=== PATIENT | female | born 1980 | race Caucasian/White ===

== ENCOUNTER 2018-02-26 13:00 | Observation (INO) | payer OTHER, MEDICAID, SELFPAY ==
[2018-02-26] VITALS (11 sets, daily range): BP systolic 117–145; BP diastolic 84–100; PULSE 80–95; RESP 12–16; TEMP 36.6–37.3; O2SAT 98–100; BMI 22.6
--- NOTE | 2018-02-26 | PATH_ITS ---
[facility] Accession Number: [id number] . 01 Material submitted: . PRODUCTS OF CONCEPTION . 02 Diagnosis: Products of Conception: Products of conception identified. MRV/03/03/2018 . 02 Electronically signed: . Ramila Shah MD, Pathologist NPI- [id number] . 01 Gross description: . Received in one formalin-filled container labeled with the patient's name and labeled products of conception, are multiple pieces of huang-edwards to red-edwards tissue and blood which aggregate to 4.5 x 2.0 x 0.5 cm. No grossly recognizable parts are observed. The specimen is entirely submitted in three cassettes. ([id number]) /FRR . 02 Pathologist provided ICD-10: O02.1 . 02 CPT . 319043 Performed at: 01 [facility] [address] [id number] MD Benitez Robetrs MD Phone: [phone] Performed at: [address] [facility] [address] [place], [place] [id number] MD Yolanda Goldman MD Phone: [phone]
--- NOTE | 2018-02-26 13:27 | ED.FEMALEGU ---
HPI - Female Genitourinary General Chief complaint: Vaginal Bleeding Stated complaint: Acute Vaginal Bleeding Time Seen by Provider: 02/26/18 13:27 Source: patient Mode of arrival: EMS Limitations: no limitations History of Present Illness HPI Narrative: Patient is a 38-year-old . On 02/08/18 underwent an elective pharmacologic . [facility] She also states that she receive the depo shot at that same time. She states that she took the pill on that day and then another pill 24 hr later. She states she had cramping and bleeding afterwards but that completely resolved. She states that since then she has had some intermittent spotting until this morning when she had sudden onset of lower abdominal pain and bleeding. Related Data Home Medications Medication Instructions Recorded Confirmed sertraline 150 mg PO QDAY #0 11/24/15 02/26/18 medroxyprogesterone [Depo-Provera] 150 mg IM [id number] 02/26/18 02/26/18 Allergies Allergy/AdvReac Type Severity Reaction Status Date / Time pumpkin [PUMPKIN] Allergy Unknown hives Verified 02/26/18 13:15 squash [SQUASH] Allergy Unknown hives Verified 02/26/18 13:15 Review of Systems Constitutional Denies fever(s) and Denies headache(s) ENT Ears, Nose, Mouth, and Throat: Denies headache(s) Cardiovascular Denies chest pain and Denies dyspnea Respiratory Denies dyspnea Gastrointestinal Gastrointestinal: Reports abdominal pain, Denies change in bowel habits, Denies nausea and Denies vomiting Genitourinary Denies dysuria, Reports pelvic pain and Reports vaginal discharge Musculoskeletal Denies myalgias and Denies arthralgias Integumentary/Breasts Denies lesions and Denies rash Neurologic Denies headache(s) Hematologic/Lymphatic Denies easy bleeding and Denies easy bruising PFSH Medical History Healthy adult (Acute) Surgical History Status post delivery Social History Smoking Status: Current every day smoker Exam Initial Vital Signs Initial Vital Signs: Vital Signs Temperature 98.4 F 02/26/18 13:15 Pulse Rate 91 H 02/26/18 13:15 Respiratory Rate 15 02/26/18 13:15 Blood Pressure 145/100 H 02/26/18 13:15 Pulse Oximetry 99 02/26/18 13:15 Const General: cooperative, healthy appearing, comfortable, well developed, well groomed and No acute distress Orientation: alert, awake and oriented x3 HENMT Head: normal to inspection and normocephalic Resp Effort & Inspection: normal respiratory effort Cardio Rate: regular rate GI Inspection: non-distended Palpation: soft, No firm and No tender Skin Lesions: no lesions Rashes: no rashes Neuro General: alert, awake and oriented x3 Extrem General: normal to inspection and capillary refill normal Psych Appearance: grossly normal and well kempt Course Orders Ordered: ED Orders 02/26/18 13:26 Complete Blood Count AUTO DIFF Stat Comprehensive Metabolic Panel Stat Partial Thromboplastin Time Stat Prothrombin Time INR Stat Type and Screen Stat 02/26/18 13:46 US pelvic complete Stat Discontinued Medications Sodium Chloride (Normal Saline 0.9%) 1,000 mls @ 1,000 mls/hr IV BOLUS ONE Stop: 02/26/18 14:45 Last Infusion: 02/26/18 15:42 Dose: 0 mls/hr Admin: 02/26/18 14:14 Dose: 1,000 mls/hr Vital Signs - 8 hr 02/26/18 13:15 02/26/18 14:25 02/26/18 15:22 Temperature 98.4 F Pulse Rate 91 H 89 86 Respiratory Rate 15 15 12 Blood Pressure 145/100 H Blood Pressure [Left Arm] 126/95 H 126/97 H Pulse Oximetry 99 99 100 02/26/18 16:20 Temperature Pulse Rate 93 H Respiratory Rate 16 Blood Pressure Blood Pressure [Left Arm] 129/97 H Pulse Oximetry 99 MDM - Female Genitourinary Lab Data Attestation: I reviewed the patient's lab results. Result diagrams: 02/26/18 13:26 02/26/18 13:26 Lab Results 02/26/18 02/26/18 02/26/18 Range/Units 13:26 13:26 13:26 WBC 10.9 (4.5-11.0) X10^3/uL RBC 4.42 (4.0-5.2) X10^6/uL Hgb 12.8 (12.0-16.0) g/dL Hct 38.7 (36-46) % MCV 87.5 (80-100) fL MCH 29.0 (26-34) PG MCHC 33.1 (30-36) % RDW 13.3 (11.6-14.8) % Plt Count 395 (150-400) X10^3/uL Neut % (Auto) 78.5 H (50-75) % Lymph % (Auto) 12.9 L (25-40) % Dale % (Auto) 7.7 (3-14) % Eos % (Auto) 0.2 L (2-4) % Baso % (Auto) 0.7 (0-2) % Neut # (Auto) 8500 H (8837-0385) /uL PT 11.0 (10.1-12.7) SECONDS INR 1.0 (0.9-1.3) APTT 27 (26.4-36.2) SECONDS Sodium 140 (137-145) mmol/L Potassium 3.8 (3.4-5.1) mmol/L Chloride 106 (98-107) mmol/L Carbon Dioxide 22 (22-32) mmol/L BUN 11 (7-17) mg/dL Creatinine 0.60 (0.52-1.04) mg/dL Estimated GFR > 60.0 (>60) mL/min BUN/Creatinine Ratio 18.3 (6-22) Glucose 107 H (70-100) mg/dL Calcium 8.8 (8.4-10.2) mg/dL Total Bilirubin 0.2 (0.2-1.3) mg/dL AST 18 (14-36) IU/L ALT 18 (9-52) IU/L Alkaline Phosphatase 82 (38-126) U/L Total Protein 7.2 (6.3-8.2) g/dL Albumin 4.4 (3.5-5.0) g/dL Globulin 2.8 (1.7-4.1) g/dL Albumin/Globulin Ratio 1.6 (1.0-2.8) Serum , Qual (Negative) Blood Type Antibody Screen 02/26/18 02/26/18 Range/Units 13:26 Unknown WBC (4.5-11.0) X10^3/uL RBC (4.0-5.2) X10^6/uL Hgb (12.0-16.0) g/dL Hct (36-46) % MCV (80-100) fL MCH (26-34) PG MCHC (30-36) % RDW (11.6-14.8) % Plt Count (150-400) X10^3/uL Neut % (Auto) (50-75) % Lymph % (Auto) (25-40) % Dale % (Auto) (3-14) % Eos % (Auto) (2-4) % Baso % (Auto) (0-2) % Neut # (Auto) (4480-6900) /uL PT (10.1-12.7) SECONDS INR (0.9-1.3) APTT (26.4-36.2) SECONDS Sodium (137-145) mmol/L Potassium (3.4-5.1) mmol/L Chloride (98-107) mmol/L Carbon Dioxide (22-32) mmol/L BUN (7-17) mg/dL Creatinine (0.52-1.04) mg/dL Estimated GFR (>60) mL/min BUN/Creatinine Ratio (6-22) Glucose (70-100) mg/dL Calcium (8.4-10.2) mg/dL Total Bilirubin (0.2-1.3) mg/dL AST (14-36) IU/L ALT (9-52) IU/L Alkaline Phosphatase (38-126) U/L Total Protein (6.3-8.2) g/dL Albumin (3.5-5.0) g/dL Globulin (1.7-4.1) g/dL Albumin/Globulin Ratio (1.0-2.8) Serum , Qual Negative (Negative) Blood Type O Positive Antibody Screen Negative Imaging Data US pelvic: Radiologist's impression: PROCEDURE: US PELVIC COMPLETE INDICATIONS: Right adnexa pain with vaginal bleeding TECHNIQUE: Real-time scanning was performed of the pelvic organs, with image documentation. Additional endovaginal scanning was necessary due to incomplete visualization of the adnexal and endometrial structures by transabdominal scanning. COMPARISON: [facility], , PELVIC COMPLETE, 07/29/2011, 9:32. FINDINGS: Transabdominal scanning: Limited scanning through the kidneys shows no hydronephrosis. No pathologic free abdominal or pelvic fluid. Endovaginal scanning: Uterus: Uterus is mildly enlarged in size at 4.5 x 6.8 x 16.2 cm, anteverted. The endometrium is abnormally thickened but the exact boundaries are not established. Note is made of echogenic material in the endometrial space measuring at least 2 cm in thickness and up to 1.4 x 0.8 cm in transverse and craniocaudad dimensions and extending likely more superiorly and inferiorly than can be accurately established by ultrasound. Prominent increased vascularity is seen in the posterior myometrium extending into the endometrium, to the degree of arterial venous fistula could be present. In the cervical canal there is also abnormal material measuring up to 3.2 x 4.0 x 4.1 cm but this is evacuated after voiding. It likely was clot. Ovaries: Right ovary measures 2.5 x 2.1 x 3.2 cm and the left measures 3.0 x 2.5 x 3.1 cm. IMPRESSION: Reported vaginal bleeding, and the findings of this study show material that may represent a combination of clot and neoplasm within the endometrial space. Prominent elevated vascularity seen at the posterior myometrium extending into the endometrial margin, to the degree that hypervascular neoplasm versus arteriovenous malformation may be present. The exact etiology of this abnormality is uncertain. Please correlate for whether a volar could be present versus endometrial neoplasm. A discrete myometrial mass is not found, and the ovaries bilaterally appear normal. As discussed above initially a masslike structure appeared present within the cervical canal but after voiding this material was evacuated and therefore presumably represented clot at that time. Findings immediately conveyed to the emergency room physician caring for the patient. Dictated by: Gabe Rivers M.D. on 02/26/2018 at 15:28 Approved by: Gabe Rivers M.D. on 02/26/2018 at 15:34 [facility] Narrative Medical decision making narrative: I did not perform a vaginal exam here in the emergency department. Patient was slightly tachycardic to between 100/105. Not anemic. Not hypotensive. test is negative. Ultrasound concerning for retained products of conception versus his AVM versus neoplasm. Discussed the case with Dr. Weston with it operations manager who will take the patient to the operating room for D and C. Discussed this with the patient. She expressed understanding and agreement. Discharge Plan Departure Patient Disposition: Admitted as Observation Clinical Impression: Vaginal bleeding Interventions: ED Discharge Assessment Last Done: 02/26/18 16:36 Admit Date/Time: 02/26/18 16:23 Admit Provider: Leila Weston
[2018-02-26 13:42] LABS: Add Manual Diff / Slide Review NO; Basophils Percent Auto 0.7 % (0-2); Eosinophils Percent Auto 0.2 % (2-4); Hematocrit 38.7 % (36-46); Hemoglobin 12.8 g/dL (12.0-16.0); Lymphocytes Percent Auto 12.9 % (25-40); Mean Corpuscular HGB Conc 33.1 % (30-36); Mean Corpuscular Volume 87.5 fL (80-100); Monocytes Percent Auto 7.7 % (3-14); Neutrophils Absolute Auto 8500 /uL (3000-5900); Neutrophils Percent Auto 78.5 % (50-75); Platelet Count 395 X10^3/uL (150-400); Red Blood Cell Count 4.42 X10^6/uL (4.0-5.2); Red Cell Distribution Width 13.3 % (11.6-14.8); White Blood Cell Count 10.9 X10^3/uL (4.5-11.0)
[2018-02-26 13:46] LABS: PTT Partial Thromboplastin Tim 27 SECONDS (26.4-36.2)
--- NOTE | 2018-02-26 13:46 | DI.US.S_ITS ---
PROCEDURE: US PELVIC COMPLETE INDICATIONS: Right adnexa pain with vaginal bleeding TECHNIQUE: Real-time scanning was performed of the pelvic organs, with image documentation. Additional endovaginal scanning was necessary due to incomplete visualization of the adnexal and endometrial structures by transabdominal scanning. COMPARISON: [facility], [place], PELVIC COMPLETE, 07/29/2011, 9:32. FINDINGS: Transabdominal scanning: Limited scanning through the kidneys shows no hydronephrosis. No pathologic free abdominal or pelvic fluid. Endovaginal scanning: Uterus: Uterus is mildly enlarged in size at 4.5 x 6.8 x 16.2 cm, anteverted. The endometrium is abnormally thickened but the exact boundaries are not established. Note is made of echogenic material in the endometrial space measuring at least 2 cm in thickness and up to 1.4 x 0.8 cm in transverse and craniocaudad dimensions and extending likely more superiorly and inferiorly than can be accurately established by ultrasound. Prominent increased vascularity is seen in the posterior myometrium extending into the endometrium, to the degree of arterial venous fistula could be present. In the cervical canal there is also abnormal material measuring up to 3.2 x 4.0 x 4.1 cm but this is evacuated after voiding. It likely was clot. Ovaries: Right ovary measures 2.5 x 2.1 x 3.2 cm and the left measures 3.0 x 2.5 x 3.1 cm. IMPRESSION: Reported vaginal bleeding, and the findings of this study show material that may represent a combination of clot and neoplasm within the endometrial space. Prominent elevated vascularity seen at the posterior myometrium extending into the endometrial margin, to the degree that hypervascular neoplasm versus arteriovenous malformation may be present. The exact etiology of this abnormality is uncertain. Please correlate for whether a volar could be present versus endometrial neoplasm. A discrete myometrial mass is not found, and the ovaries bilaterally appear normal. As discussed above initially a masslike structure appeared present within the cervical canal but after voiding this material was evacuated and therefore presumably represented clot at that time. Findings immediately conveyed to the emergency room physician caring for the patient. Dictated by: Gabe Rivers M.D. on 02/26/2018 at 15:28 Approved by: Gabe Rivers M.D. on 02/26/2018 at 15:34
[2018-02-26 13:52] LABS: Alanine Aminotransferase 18 IU/L (9-52); Albumin 4.4 g/dL (3.5-5.0); Albumin Globulin Ratio 1.6 (1.0-2.8); Alkaline Phosphatase 82 U/L (38-126); Aspartate Aminotransferase 18 IU/L (14-36); BUN Creatinine Ratio 18.3 (6-22); Bilirubin Total 0.2 mg/dL (0.2-1.3); Blood Urea Nitrogen 11 mg/dL (7-17); Calcium 8.8 mg/dL (8.4-10.2); Carbon Dioxide 22 mmol/L (22-32); Chloride 106 mmol/L (98-107); Estimated Glomerular Filt Rate > 60.0 mL/min (>60); Globulin 2.8 g/dL (1.7-4.1); Glucose 107 mg/dL (70-100); HEMOLYSIS < 15 (0-50); Potassium 3.8 mmol/L (3.4-5.1); Sodium 140 mmol/L (137-145); Total Protein 7.2 g/dL (6.3-8.2)
[2018-02-26] MEDS: SODIUM CHLORIDE 0.9% 1,000 ML 1000 ML IV (14:14)
[2018-02-26 14:32] LABS: Pregnancy Test Serum,Qual Negative (Negative)
--- NOTE | 2018-02-26 16:21 | PC.NURSE ---
pt had large amount of bleeding and clots with urination.
--- NOTE | 2018-02-26 16:46 | SUR.OPER ---
Lithotomy on padded OR bed, head on pillow, arms secured on padded arm boards at <90 degrees abduction. Legs secured in padded yellow fins stirrups.
[2018-02-26] MEDS: LACTATED RINGERS 1,000 ML 42 ML IV (16:57)
--- NOTE | 2018-02-26 17:10 | PM.PREOP ---
Pre-operative Note Interval Note Pre-op Check: Yes History & Physical exam performed today by Physician Changes: No
--- NOTE | 2018-02-26 17:18 | P.HP_ITS ---
History of Present Illness Date Patient Seen: 02/26/18 Time Patient Seen: 17:14 Chief complaint: Acute Vaginal Bleeding Narrative: 38 year old with retained products of conception after a medical Patient History Medical History Healthy adult (Acute) Surgical History Status post delivery Family & Social History Safety & Behavioral: Feels Safe in Current Yes Environment Tobacco & Substance use: Smoking Status Current every day smoker alcohol intake frequency a few times a month Substance Use Type does not use Meds Home Medications Medication Instructions Recorded Confirmed Type sertraline 150 mg PO QDAY #0 11/24/15 02/26/18 History medroxyprogesterone [Depo-Provera] 150 mg IM [id number] 02/26/18 02/26/18 History Allergies Allergy/AdvReac Type Severity Reaction Status Date / Time pumpkin [PUMPKIN] Allergy Unknown hives Verified 02/26/18 13:15 squash [SQUASH] Allergy Unknown hives Verified 02/26/18 13:15 Exam Vital Signs (past 8 hours): - 02/26/18 13:15 02/26/18 14:25 02/26/18 15:22 Temperature 98.4 F Pulse Rate 91 H 89 86 Respiratory Rate 15 15 12 Blood Pressure 145/100 H Blood Pressure [Left Arm] 126/95 H 126/97 H Pulse Oximetry 99 99 100 02/26/18 16:20 02/26/18 16:48 Temperature 98.6 F Pulse Rate 93 H 95 H Respiratory Rate 16 16 Blood Pressure 130/87 Blood Pressure [Left Arm] 129/97 H Pulse Oximetry 99 98 Oxygen Delivery Method Room Air Narrative Exam Narrative: HEENT: No thyromegaly, no anterior cervical or supraclavicular lymphadenopathy. Lungs:Clear to auscultation bilaterally, no wheezes. Cardiovascular: Regular rate and rhythm, no murmurs, rubs, or gallops. Abdomen: Well-healed Pfannenstiel scars. No hepatosplenomegaly. No masses palpable. External genitalia: Normal Vagina: Normal Cervix: Normal Bimanual exam: 8 Week size uterus. Mobile. Rectal: No masses. Ultrasound: Thickened lining of the uterus with hyperechoic material and increased blood flow consistent with retained products of conception. Objective Labs Result Diagrams: 02/26/18 13:26 02/26/18 13:26 Labs: Laboratory Results - last 24 hr 02/26/18 02/26/18 02/26/18 13:26 13:26 13:26 WBC 10.9 RBC 4.42 Hgb 12.8 Hct 38.7 MCV 87.5 MCH 29.0 MCHC 33.1 RDW 13.3 Plt Count 395 Neut % (Auto) 78.5 H Lymph % (Auto) 12.9 L [place]orne % (Auto) 7.7 Eos % (Auto) 0.2 L Baso % (Auto) 0.7 Neut # (Auto) 8500 H PT 11.0 INR 1.0 APTT 27 Sodium 140 Potassium 3.8 Chloride 106 Carbon Dioxide 22 BUN 11 Creatinine 0.60 Estimated GFR > 60.0 BUN/Creatinine Ratio 18.3 Glucose 107 H Calcium 8.8 Total Bilirubin 0.2 AST 18 ALT 18 Alkaline Phosphatase 82 Total Protein 7.2 Albumin 4.4 Globulin 2.8 Albumin/Globulin Ratio 1.6 Serum , Qual Blood Type Antibody Screen 02/26/18 02/26/18 13:26 Unknown WBC RBC Hgb Hct MCV MCH MCHC RDW Plt Count Neut % (Auto) Lymph % (Auto) [place] % (Auto) Eos % (Auto) Baso % (Auto) Neut # (Auto) PT INR APTT Sodium Potassium Chloride Carbon Dioxide BUN Creatinine Estimated GFR BUN/Creatinine Ratio Glucose Calcium Total Bilirubin AST ALT Alkaline Phosphatase Total Protein Albumin Globulin Albumin/Globulin Ratio Serum , Qual Negative Blood Type O Positive Antibody Screen Negative Assessment & Plan (1) Retained products of conception: Current visit: Yes Status: Acute Plan: Assessment/Plan Narrative: Assessment: 38-year-old 3 para 2 with retained products of conception after a medical induced Plan: Suction S held and consent form was signed. D&C The risks, benefits, and alternatives to the procedure were explained to the patient. The risks including bleeding, infection, and uterine perforation. She understands these risks and agrees to proceed. A full PAR-Q
--- NOTE | 2018-02-26 17:29 | PM.GYNOP.1 ---
Operative Date/Time/Diagnoses Date of procedure: 02/26/18 Time of procedure: 17:29 Pre-op diagnosis: Retained products of conception Post-op diagnosis: same Procedure: Procedures Operation Date: 02/26/18 16:30 Actual Procedures Side Surgeon p Dilation and Curettage Leila Weston MD Suction D&C Indications: Retained products of conception Surgeon: Leila Weston Anesthesia Type: General (LMA) Operative Notes Findings: 8 week size anteverted uterus Large amount of products of conception Closure Type: not applicable Specimen(s): other (Products of conception) Applied: catheter (In and out) Estimated blood loss (mL): 150 Blood products transfused: none Procedure in detail: After informed consent was obtained, the patient was taken to the operating room where she was placed in the dorsal supine position. After adequate LMA general anesthesia was achieved, she was placed in the dorsal lithotomy position, and prepped and draped in the usual sterile fashion. A time-out was performed. A bivalve speculum was placed into the vagina, the anterior lip of the cervix was grasped with a single-tooth tenaculum. The cervical os was sequentially dilated to the #8 Hegar dilator. The # 8 curved plastic curette passed easily into the endometrial cavity. Several passes with suction revealed a large amount of tissue and clot. The plastic curette was removed. Sharp curettage was performed yielding minimal amount of tissue. Several more passes with suction revealed blood only. The instruments were removed from the uterus. The single-tooth tenaculum was removed from the anterior lip of the cervix. The bivalve speculum was removed from the vagina. Sponge, lap, and instrument counts were correct x2. The patient tolerated the procedure well, and was taken to PACU in stable condition. Complications: none Post-operative Condition: stable Disposition: PACU Plan for aftercare: Home after recovery
== END 2018-02-26 18:48 | disposition home or self-care (01) ==
LOC: ED 13:52 → AC 16:25
PROVIDERS: Admitting Provider Obstetrics & Gynecology; Emergency Provider Emergency Medicine; Family Provider Family Medicine; Visit Provider Obstetrics & Gynecology
PROC: (CPT 58120; principal; 2018-02-26 16:30)
DX: O03.4 Incomplete spontaneous abortion without complication (principal); N93.9 Abnormal uterine and vaginal bleeding, unspecified; F17.210 Nicotine dependence, cigarettes, uncomplicated
CPT/HCPCS: 59812; 76830; 76856; 80053; 84703; 85025; 85610; 85730; 86850; 86900; 86901; 96360; 99283; 99285; G0378; J2250; J2405; J2704; J3010

== ENCOUNTER 2018-04-16 17:38 | Emergency (ER) | payer OTHER, MEDICAID, SELFPAY ==
[2018-04-16 17:45] VITALS: BP 144/99; PULSE 88; RESP 20; TEMP 37.6; O2SAT 100; BMI 22.7
--- NOTE | 2018-04-16 18:01 | ED.FEMALEGU ---
HPI - Female Genitourinary General Chief complaint: Urogenital-Female Stated complaint: R/O Ectopic Time Seen by Provider: 04/16/18 18:01 Source: patient and EMS Mode of arrival: EMS Limitations: no limitations History of Present Illness HPI Narrative: 38-year-old female, daily smoker, otherwise healthy presents by air medical transport for evaluation of right lower quadrant pain in the setting of some vaginal bleeding for evaluation of possible ectopic. Patient has nausea but denies vomiting. Her pain is worse with motion and palpation. Her bleeding has been minimal and she may soak through 1 or 2 pads a day. She is not dizzy nor weak or lightheaded. She has no fever or chills. She denies dysuria, frequency or urgency. She was set for a repeat Depo-Provera injection about 2 weeks ago and this is the 1st time she has gone without in quite some time. She does have a history of ovarian cysts. There was no test performed prior to her arrival. She is sexually active MD Complaint: vaginal bleeding and pelvic pain Onset (ago): hour(s) Female Urogenital Radiation: LRQ Severity: mild Quality: Aching and Cramping Exacerbating factors: movement Vaginal discharge: blood Related Data Home Medications Medication Instructions Recorded Confirmed sertraline 150 mg PO QDAY #0 11/24/15 02/26/18 medroxyprogesterone [Depo-Provera] 150 mg IM [id number] 02/26/18 02/26/18 Previous Rx's Medication Instructions Recorded oxycodone-acetaminophen [Percocet] 1 tab PO Q4-6H PRN #10 tab 02/26/18 ketorolac 10 mg PO Q6H PRN #14 tab 04/16/18 Allergies Allergy/AdvReac Type Severity Reaction Status Date / Time pumpkin [PUMPKIN] Allergy Unknown hives Verified 02/26/18 13:15 squash [SQUASH] Allergy Unknown hives Verified 02/26/18 13:15 Review of Systems Review of Systems All systems reviewed & are unremarkable except as noted in HPI and below Constitutional Denies chills, Denies fever(s), Denies lethargy and Denies weakness Eyes Denies change in vision, Denies eye discharge, Denies irritation and Denies loss of vision ENT Ears, Nose, Mouth, and Throat: Denies change in voice, Denies neck pain and Denies sore throat Cardiovascular Denies chest pain, Denies irregular heart rhythm, Denies lightheadedness, Denies palpitations, Denies dyspnea, Denies dyspnea on exertion and Denies orthopnea Respiratory Denies cough, Denies dyspnea, Denies dyspnea on exertion and Denies wheezing Gastrointestinal Gastrointestinal: Denies abdominal pain, Denies change in bowel habits, Denies diarrhea, Denies nausea and Denies vomiting Genitourinary Reports abnormal vaginal bleeding, Denies hematuria, Denies flank pain, Denies urinary incontinence and Denies urinary urgency Musculoskeletal Denies neck pain Integumentary/Breasts Denies pruritus, Denies erythema, Denies rash and Denies wounds Neurologic Denies confusion, Denies loss of vision and Denies weakness Psychiatric Denies anxiety, Denies confusion, Denies depression, Denies homicidal ideation and Denies suicidal ideation Endocrine Denies palpitations Hematologic/Lymphatic Denies easy bruising Allergic/Immunologic Denies wheezing PFSH Medical History Healthy adult (Acute) Surgical History Status post delivery Social History Smoking Status: Current every day smoker Exam Initial Vital Signs Initial Vital Signs: Vital Signs Temperature 99.6 F 04/16/18 17:45 Pulse Rate 88 04/16/18 17:45 Respiratory Rate 20 04/16/18 17:45 Blood Pressure 144/99 H 04/16/18 17:45 Pulse Oximetry 100 04/16/18 17:45 Course Orders Ordered: ED Orders 04/16/18 18:50 ABO RH Type Stat Basic Metabolic Panel Stat Complete Blood Count AUTO DIFF Stat HCG Quantitative Stat Discontinued Medications Ketorolac Tromethamine (Toradol) 15 mg IV NOW ONE Stop: 04/16/18 20:22 Last Admin: 04/16/18 20:30 Dose: 15 mg Vital Signs - 8 hr 04/16/18 20:27 Pulse Rate 86 Respiratory Rate 15 Blood Pressure [Left Arm] 122/83 Pulse Oximetry 99 MDM - Female Genitourinary Differential Diagnosis Likely urinary tract infection, bacterial vaginosis, ruptured ovarian cyst and dysmenorrhea Medical Records Attestation: I reviewed the patient's medical records. Lab Data Attestation: I reviewed the patient's lab results. Result diagrams: 04/16/18 18:50 04/16/18 18:50 Lab Results 04/16/18 04/16/18 04/16/18 Range/Units 18:50 18:50 18:50 WBC 7.1 (4.5-11.0) X10^3/uL RBC 4.78 (4.0-5.2) X10^6/uL Hgb 12.6 (12.0-16.0) g/dL Hct 38.3 (36-46) % MCV 80.2 (80-100) fL MCH 26.3 (26-34) PG MCHC 32.8 (30-36) % RDW 14.0 (11.6-14.8) % Plt Count 417 H (150-400) X10^3/uL Neut % (Auto) 65.9 (50-75) % Lymph % (Auto) 21.3 L (25-40) % [place] % (Auto) 11.6 (3-14) % Eos % (Auto) 0.8 L (2-4) % Baso % (Auto) 0.4 (0-2) % Neut # (Auto) 4700 (5344-8709) /uL Sodium 141 (137-145) mmol/L Potassium 4.1 (3.4-5.1) mmol/L Chloride 101 (98-107) mmol/L Carbon Dioxide 29 (22-32) mmol/L BUN 5 L (7-17) mg/dL Creatinine 0.70 (0.52-1.04) mg/dL Estimated GFR > 60.0 (>60) mL/min BUN/Creatinine Ratio 7.1 (6-22) Glucose 92 (70-100) mg/dL Calcium 8.9 (8.4-10.2) mg/dL HCG, Quant < 2.39 mIU/mL Blood Type O Positive Imaging Data US - abdomen: Radiologist's impression: [address] [address] Ultrasound Report Signed Patient: Elsie Juarez MR#: [id number] : 1980 Acct:[id number] Age/Sex: 38 / F Date of Service: 04/16/18 Loc: ED Accession Number: [id number] Procedure: US pelvic complete Ordering Provider: Rajiv Aguilar D.O. PROCEDURE: US PELVIC COMPLETE INDICATIONS: PAIN, BLEEDING TECHNIQUE: Real-time scanning was performed of the pelvic organs, with image documentation. Additional endovaginal scanning was necessary due to incomplete visualization of the adnexal and endometrial structures by transabdominal scanning. COMPARISON: [facility], , US PELVIC COMPLETE, 02/26/2018, 14:36. FINDINGS: Transabdominal scanning: Limited scanning through the kidneys shows no hydronephrosis. No pathologic free abdominal or pelvic fluid. Endovaginal scanning: Uterus: Uterus is normal in size at 8.1 x 4.1 x 5.4 cm. The endometrium measures 4.0 mm in combined thickness. There is no visualized intrauterine . Ovaries: Right ovary measures 33 x 13 x 37 mm. Left ovary measures 36 x 29 x 38 mm. Focus of hypoechogenicity within the left ovary is noted measuring 32 x 24 x 24 mm. Miscellaneous: No visualized dependent pelvic fluid. IMPRESSION: 1. No intrauterine is identified. Hypoechoic focus is present within the left ovary suggestive of cysts. However, beta-hCG level is not available at the time of examination. Given the above, recommend continued short interval imaging followup and clinical correlation as ectopic cannot be definitively excluded. Dictated by: Vale Rivas M.D. on 04/16/2018 at 19:44 Approved by: Vale Rivas M.D. on 04/16/2018 at 19:47 Discharge Plan Departure Patient Disposition: Home Clinical Impression: Pelvic pain, Ovarian cyst Discharge Date/Time: 04/16/18 20:58 Interventions: ED Discharge Assessment Last Done: 04/16/18 20:58 Instructions: DI for Pelvic Pain Activity Restrictions/Additional Instructions: *You have been diagnosed with [ pelvic pain, vaginal bleeding ] *What to do: *Take medications as directed *Follow up with your primary care provider in 2-3 days, call for an appointment. Let them know you were seen in the Emergency Department and that we ask that you be seen in follow up *Return to ER if you should have any new, worsening or concerning symptoms Prescriptions: New ketorolac 10 mg tablet 10 mg PO Q6H PRN (Reason: pain) Qty: 14 RF: 0 No Action sertraline 100 MG tablet 150 mg PO QDAY Qty: 0 RF: 0 medroxyprogesterone [Depo-Provera] 150 mg/mL Suspension 150 mg IM [id number] RF: 0 oxycodone-acetaminophen [Percocet] 5-325 mg tablet 1 tab PO Q4-6H PRN (Reason: pain) Qty: 10 RF: 0 Referrals: Mina Ascencio MD [Family Provider] -
--- NOTE | 2018-04-16 18:04 | DI.US.S_ITS ---
PROCEDURE: US PELVIC COMPLETE INDICATIONS: PAIN, BLEEDING TECHNIQUE: Real-time scanning was performed of the pelvic organs, with image documentation. Additional endovaginal scanning was necessary due to incomplete visualization of the adnexal and endometrial structures by transabdominal scanning. COMPARISON: [facility], , US PELVIC COMPLETE, 02/26/2018, 14:36. FINDINGS: Transabdominal scanning: Limited scanning through the kidneys shows no hydronephrosis. No pathologic free abdominal or pelvic fluid. Endovaginal scanning: Uterus: Uterus is normal in size at 8.1 x 4.1 x 5.4 cm. The endometrium measures 4.0 mm in combined thickness. There is no visualized intrauterine . Ovaries: Right ovary measures 33 x 13 x 37 mm. Left ovary measures 36 x 29 x 38 mm. Focus of hypoechogenicity within the left ovary is noted measuring 32 x 24 x 24 mm. Miscellaneous: No visualized dependent pelvic fluid. IMPRESSION: 1. No intrauterine is identified. Hypoechoic focus is present within the left ovary suggestive of cysts. However, beta-hCG level is not available at the time of examination. Given the above, recommend continued short interval imaging followup and clinical correlation as ectopic cannot be definitively excluded. Dictated by: Vale Rivas M.D. on 04/16/2018 at 19:44 Approved by: Vale Rivas M.D. on 04/16/2018 at 19:47
[2018-04-16 18:55] LABS: Add Manual Diff / Slide Review NO; Basophils Percent Auto 0.4 % (0-2); Eosinophils Percent Auto 0.8 % (2-4); Hematocrit 38.3 % (36-46); Hemoglobin 12.6 g/dL (12.0-16.0); Lymphocytes Percent Auto 21.3 % (25-40); Mean Corpuscular HGB Conc 32.8 % (30-36); Mean Corpuscular Hemoglobin 26.3 PG (26-34); Mean Corpuscular Volume 80.2 fL (80-100); Monocytes Percent Auto 11.6 % (3-14); Neutrophils Absolute Auto 4700 /uL (1500-7000); Neutrophils Percent Auto 65.9 % (50-75); Platelet Count 417 X10^3/uL (150-400); Red Blood Cell Count 4.78 X10^6/uL (4.0-5.2); White Blood Cell Count 7.1 X10^3/uL (4.5-11.0)
[2018-04-16 19:04] LABS: BUN Creatinine Ratio 7.1 (6-22); Blood Urea Nitrogen 5 mg/dL (7-17); Calcium 8.9 mg/dL (8.4-10.2); Carbon Dioxide 29 mmol/L (22-32); Chloride 101 mmol/L (98-107); Estimated Glomerular Filt Rate > 60.0 mL/min (>60); Glucose 92 mg/dL (70-100); HEMOLYSIS < 15 (0-50); Potassium 4.1 mmol/L (3.4-5.1); Sodium 141 mmol/L (137-145)
[2018-04-16 19:21] LABS: HCG Quantitative /Beta subunit < 2.39 mIU/mL
[2018-04-16 20:27] VITALS: BP 122/83; PULSE 86; RESP 15; O2SAT 99
[2018-04-16] MEDS: KETOROLAC 60 MG/2 ML VIAL 15 MG IV (20:30)
--- NOTE | 2018-04-17 03:26 | ED_ITS ---
HPI - Female Genitourinary General Chief complaint: Urogenital-Female Stated complaint: R/O Ectopic Time Seen by Provider: 04/16/18 18:01 Source: patient and EMS Mode of arrival: EMS Limitations: no limitations History of Present Illness HPI Narrative: 38-year-old female, daily smoker, otherwise healthy presents by air medical transport for evaluation of right lower quadrant pain in the setting of some vaginal bleeding for evaluation of possible ectopic. Patient has nausea but denies vomiting. Her pain is worse with motion and palpation. Her bleeding has been minimal and she may soak through 1 or 2 pads a day. She is not dizzy nor weak or lightheaded. She has no fever or chills. She denies dysuria, frequency or urgency. She was set for a repeat Depo-Provera injection about 2 weeks ago and this is the 1st time she has gone without in quite some time. She does have a history of ovarian cysts. There was no test performed prior to her arrival. She is sexually active MD Complaint: vaginal bleeding and pelvic pain Onset (ago): hour(s) Female Urogenital Radiation: LRQ Severity: mild Quality: Aching and Cramping Exacerbating factors: movement Vaginal discharge: blood Related Data Home Medications Medication Instructions Recorded Confirmed sertraline 150 mg PO QDAY #0 11/24/15 02/26/18 medroxyprogesterone [Depo-Provera] 150 mg IM [id number] 02/26/18 02/26/18 Previous Rx's Medication Instructions Recorded oxycodone-acetaminophen [Percocet] 1 tab PO Q4-6H PRN #10 tab 02/26/18 ketorolac 10 mg PO Q6H PRN #14 tab 04/16/18 Allergies Allergy/AdvReac Type Severity Reaction Status Date / Time pumpkin [PUMPKIN] Allergy Unknown hives Verified 02/26/18 13:15 squash [SQUASH] Allergy Unknown hives Verified 02/26/18 13:15 Review of Systems Review of Systems All systems reviewed & are unremarkable except as noted in HPI and below Constitutional Denies chills, Denies fever(s), Denies lethargy and Denies weakness Eyes Denies change in vision, Denies eye discharge, Denies irritation and Denies loss of vision ENT Ears, Nose, Mouth, and Throat: Denies change in voice, Denies neck pain and Denies sore throat Cardiovascular Denies chest pain, Denies irregular heart rhythm, Denies lightheadedness, Denies palpitations, Denies dyspnea, Denies dyspnea on exertion and Denies orthopnea Respiratory Denies cough, Denies dyspnea, Denies dyspnea on exertion and Denies wheezing Gastrointestinal Gastrointestinal: Denies abdominal pain, Denies change in bowel habits, Denies diarrhea, Denies nausea and Denies vomiting Genitourinary Reports abnormal vaginal bleeding, Denies hematuria, Denies flank pain, Denies urinary incontinence and Denies urinary urgency Musculoskeletal Denies neck pain Integumentary/Breasts Denies pruritus, Denies erythema, Denies rash and Denies wounds Neurologic Denies confusion, Denies loss of vision and Denies weakness Psychiatric Denies anxiety, Denies confusion, Denies depression, Denies homicidal ideation and Denies suicidal ideation Endocrine Denies palpitations Hematologic/Lymphatic Denies easy bruising Allergic/Immunologic Denies wheezing PFSH Medical History Healthy adult (Acute) Surgical History Status post delivery Social History Smoking Status: Current every day smoker Exam Initial Vital Signs Initial Vital Signs: Vital Signs Temperature 99.6 F 04/16/18 17:45 Pulse Rate 88 04/16/18 17:45 Respiratory Rate 20 04/16/18 17:45 Blood Pressure 144/99 H 04/16/18 17:45 Pulse Oximetry 100 04/16/18 17:45 Course Orders Ordered: ED Orders 04/16/18 18:50 ABO RH Type Stat Basic Metabolic Panel Stat Complete Blood Count AUTO DIFF Stat HCG Quantitative Stat Discontinued Medications Ketorolac Tromethamine (Toradol) 15 mg IV NOW ONE Stop: 04/16/18 20:22 Last Admin: 04/16/18 20:30 Dose: 15 mg Vital Signs - 8 hr 04/16/18 20:27 Pulse Rate 86 Respiratory Rate 15 Blood Pressure [Left Arm] 122/83 Pulse Oximetry 99 MDM - Female Genitourinary Differential Diagnosis Likely urinary tract infection, bacterial vaginosis, ruptured ovarian cyst and dysmenorrhea Medical Records Attestation: I reviewed the patient's medical records. Lab Data Attestation: I reviewed the patient's lab results. Result diagrams: 04/16/18 18:50 04/16/18 18:50 Lab Results 04/16/18 04/16/18 04/16/18 Range/Units 18:50 18:50 18:50 WBC 7.1 (4.5-11.0) X10^3/uL RBC 4.78 (4.0-5.2) X10^6/uL Hgb 12.6 (12.0-16.0) g/dL Hct 38.3 (36-46) % MCV 80.2 (80-100) fL MCH 26.3 (26-34) PG MCHC 32.8 (30-36) % RDW 14.0 (11.6-14.8) % Plt Count 417 H (150-400) X10^3/uL Neut % (Auto) 65.9 (50-75) % Lymph % (Auto) 21.3 L (25-40) % [place] % (Auto) 11.6 (3-14) % Eos % (Auto) 0.8 L (2-4) % Baso % (Auto) 0.4 (0-2) % Neut # (Auto) 4700 (6005-8274) /uL Sodium 141 (137-145) mmol/L Potassium 4.1 (3.4-5.1) mmol/L Chloride 101 (98-107) mmol/L Carbon Dioxide 29 (22-32) mmol/L BUN 5 L (7-17) mg/dL Creatinine 0.70 (0.52-1.04) mg/dL Estimated GFR > 60.0 (>60) mL/min BUN/Creatinine Ratio 7.1 (6-22) Glucose 92 (70-100) mg/dL Calcium 8.9 (8.4-10.2) mg/dL HCG, Quant < 2.39 mIU/mL Blood Type O Positive Imaging Data US - abdomen: Radiologist's impression: [address] [address] Ultrasound Report Signed Patient: Elsie Juarez MR#: [id number] : 1980 Acct:[id number] Age/Sex: 38 / F Date of Service: 04/16/18 Loc: ED Accession Number: [id number] Procedure: US pelvic complete Ordering Provider: Rajiv Aguilar D.O. PROCEDURE: US PELVIC COMPLETE INDICATIONS: PAIN, BLEEDING TECHNIQUE: Real-time scanning was performed of the pelvic organs, with image documentation. Additional endovaginal scanning was necessary due to incomplete visualization of the adnexal and endometrial structures by transabdominal scanning. COMPARISON: [facility], , US PELVIC COMPLETE, 02/26/2018, 14:36. FINDINGS: Transabdominal scanning: Limited scanning through the kidneys shows no hydronephrosis. No pathologic free abdominal or pelvic fluid. Endovaginal scanning: Uterus: Uterus is normal in size at 8.1 x 4.1 x 5.4 cm. The endometrium measures 4.0 mm in combined thickness. There is no visualized intrauterine . Ovaries: Right ovary measures 33 x 13 x 37 mm. Left ovary measures 36 x 29 x 38 mm. Focus of hypoechogenicity within the left ovary is noted measuring 32 x 24 x 24 mm. Miscellaneous: No visualized dependent pelvic fluid. IMPRESSION: 1. No intrauterine is identified. Hypoechoic focus is present within the left ovary suggestive of cysts. However, beta-hCG level is not available at the time of examination. Given the above, recommend continued short interval imaging followup and clinical correlation as ectopic cannot be definitively excluded. Dictated by: Vale Rivas M.D. on 04/16/2018 at 19:44 Approved by: Vale Rivas M.D. on 04/16/2018 at 19:47 Discharge Plan Departure Patient Disposition: Home Clinical Impression: Pelvic pain, Ovarian cyst Discharge Date/Time: 04/16/18 20:58 Interventions: ED Discharge Assessment Last Done: 04/16/18 20:58 Instructions: DI for Pelvic Pain Activity Restrictions/Additional Instructions: *You have been diagnosed with [ pelvic pain, vaginal bleeding ] *What to do: *Take medications as directed *Follow up with your primary care provider in 2-3 days, call for an appointment. Let them know you were seen in the Emergency Department and that we ask that you be seen in follow up *Return to ER if you should have any new, worsening or concerning symptoms Prescriptions: New ketorolac 10 mg tablet 10 mg PO Q6H PRN (Reason: pain) Qty: 14 RF: 0 No Action sertraline 100 MG tablet 150 mg PO QDAY Qty: 0 RF: 0 medroxyprogesterone [Depo-Provera] 150 mg/mL Suspension 150 mg IM [id number] RF: 0 oxycodone-acetaminophen [Percocet] 5-325 mg tablet 1 tab PO Q4-6H PRN (Reason: pain) Qty: 10 RF: 0 Referrals: Mina Ascencio MD [Family Provider] -
== END 2018-04-16 20:58 | disposition home or self-care (01) ==
PROVIDERS: Emergency Provider Emergency Medicine; Family Provider Family Medicine
DX: N83.209 Unspecified ovarian cyst, unspecified side (principal); R10.2 Pelvic and perineal pain
CPT/HCPCS: 36415; 76830; 76856; 80048; 84702; 85025; 86900; 86901; 96374; 99282; 99284; J1885

== ENCOUNTER 2020-07-26 14:56 | Emergency (ER) | payer OTHER, MEDICAID, SELFPAY ==
[2020-07-26] VITALS (7 sets, daily range): BP systolic 151–154; BP diastolic 88–105; PULSE 68–93; RESP 15–20; TEMP 37.1; O2SAT 95–99; BMI 24.5
[2020-07-26 15:28] LABS: Add Manual Diff / Slide Review NO; Basophils Absolute Auto 100 /uL (0-100); Basophils Percent Auto 0.8 % (0-2); Eosinophils Absolute Auto 100 /uL (0-450); Eosinophils Percent Auto 0.9 % (2-4); Hematocrit 46.5 % (36-46); Hemoglobin 15.7 g/dL (12.0-16.0); Lymphocytes Absolute Auto 2200 /uL (1100-4500); Lymphocytes Percent Auto 29.7 % (25-40); Mean Corpuscular HGB Conc 33.8 % (30-36); Mean Corpuscular Hemoglobin 30.4 PG (26-34); Mean Corpuscular Volume 90.1 fL (80-100); Monocytes Absolute Auto 800 /uL (0-900); Monocytes Percent Auto 10.3 % (3-14); Neutrophils Absolute Auto 4300 /uL (1500-7000); Neutrophils Percent Auto 58.3 % (50-75); Platelet Count 347 X10^3/uL (150-400); Red Blood Cell Count 5.16 X10^6/uL (4.0-5.2); Red Cell Distribution Width 13.4 % (11.6-14.8); White Blood Cell Count 7.4 X10^3/uL (4.5-11.0)
[2020-07-26 15:39] LABS: INR 0.9 (0.9-1.3); Prothrombin Time 10.6 SECONDS (10.1-12.7)
[2020-07-26 15:41] LABS: PTT Partial Thromboplastin Tim 33 SECONDS (26.4-36.2)
[2020-07-26 16:21] LABS: Alanine Aminotransferase 15 IU/L (<35); Albumin 4.6 g/dL (3.5-5.0); Albumin Globulin Ratio 1.4 (1.0-2.8); Alkaline Phosphatase 73 U/L (38-126); Aspartate Aminotransferase 26 IU/L (14-36); BUN Creatinine Ratio 15.6 (6-22); Bilirubin Total 0.3 mg/dL (0.2-1.3); Blood Urea Nitrogen 10 mg/dL (7-17); Calcium 9.9 mg/dL (8.4-10.2); Carbon Dioxide 23 mmol/L (22-32); Chloride 106 mmol/L (98-107); Estimated Glomerular Filt Rate > 60.0 mL/min (>60); Globulin 3.3 g/dL (1.7-4.1); Glucose 99 mg/dL (70-100); HEMOLYSIS < 15 (0-50); Lipase 52 U/L (23-300); Sodium 140 mmol/L (137-145); Total Protein 7.9 g/dL (6.3-8.2)
--- NOTE | 2020-07-26 19:18 | ED_ITS ---
HPI - Abdominal Pain General Chief Complaint: Abdominal Pain Stated Complaint: sent for appendix work up Time Seen by Provider: 07/26/20 19:08 Source: patient Mode of arrival: Ambulatory Limitations: no limitations History of Present Illness HPI narrative: The patient is a 40-year-old female with history of ovarian cyst presenting with right lower quadrant pain ongoing for 2 days. She says it starts in her right lower quadrant and had no migration or radiation. She was seen by primary care provider yesterday and started on amoxicillin now. She thinks she maybe she had a low-grade fever initially she has felt nauseous she has had decreased appetite she had a little bit of diarrhea. She says typically in her ovarian cysts she has sharp shooting pain and then eventually goes away is not last for days she says this does not feel like her cyst pain. She was referred to the emergency department for further evaluation thinking it may be appendicitis. She he continues to have. It hurts when she walks or moves including car rides and michael patterson MD complaint: abdominal pain Onset (ago): day(s) Pain Consistency: constant Location: RLQ Severity: moderate Quality: cramping and stabbing Radiation: none Migration to: no migration Relieving factors: nothing Exacerbating factors: nothing Related Data Previous Rx's Medication Instructions Recorded amoxicillin 875 mg-potassium 1 tab PO BID #20 tab 07/25/20 clavulanate 125 mg tablet hydrocodone-acetaminophen 1 tab PO Q6H PRN #10 tab 07/26/20 Allergies Allergy/AdvReac Type Severity Reaction Status Date / Time pumpkin [PUMPKIN] Allergy Unknown hives Verified 07/26/20 15:10 squash [SQUASH] Allergy Unknown hives Verified 07/26/20 15:10 Review of Systems Review of Systems Narrative: GENERAL: Denies chills, fatigue, malaise, fever, sweats, travel HEENT: Denies sinus pain, ear pain, sore throat, difficulty swallowing, neck pain RESPIRATORY: Denies dyspnea, cough, wheezing, hemoptysis, sputum. CARDIOVASCULAR: Denies chest pain, palpitations, orthopnea, edema GASTROINTESTINAL: See HPI : Denies dysuria, frequency, incontinence, hematuria, urinary retention, flank pain. MUSCULOSKELETAL: Denies weakness, joint pain, or bony pain SKIN: No rash, no erythema, no pruritus NEUROLOGIC: Denies weakness, dizziness, headache, numbness, change in speech, confusion PSYCHIATRIC: No concerning psychosocial issues. 12 point review of systems is negative except for those stated above and HPI Patient History Medical History (Updated 07/26/20 @ 21:31 by Pretty Rojas DO) Healthy adult Surgical History Status post delivery Social History Smoking Status: Unknown if ever smoked Smoking Status: Unknown if ever smoked alcohol intake frequency: holidays/special occasions only Substance Use Type: does not use Exam Initial Vital Signs Initial Vital Signs: Vital Signs Temperature 98.7 F 07/26/20 15:08 Pulse Rate 82 07/26/20 15:08 Respiratory Rate 15 07/26/20 15:08 Blood Pressure 154/105 H 07/26/20 15:08 Pulse Oximetry 98 07/26/20 15:08 GENERAL: Alert pleasant 40-year-old female and in no acute distress. HEENT: Head atraumatic,EOMI, pupils reactive, face symmetric, moist mucous membranes CARDIOVASCULAR: Regular rate and rhythm without murmurs, rubs or gallops. RESPIRATORY: Breath sounds equal bilaterally, no wheezes rales or rhonchi. ABDOMEN: Soft, tender right lower quadrant no guarding no rebound no right upper quadrant pain EXTREMITIES: Normal range of motion, no clubbing or edema. Neurovascularly intact NEUROLOGICAL: Alert and oriented x4.Normal gait and speech. SKIN: Warm, dry, no laceration, no petechiae, no rashes or lesions. Course Orders Ordered: Discontinued Medications Hydrocodone Bitart/Acetaminophen (Hydrocodone/Acet 5/325 Prepack) 1 bottle MISC SEEINSTR ONE Stop: 07/26/20 21:48 Last Admin: 07/26/20 21:50 Dose: 1 bottle Documented by: VIJAY Morphine Sulfate (Morphine 2 Mg/Ml Inj) 2 mg IV NOW ONE Stop: 07/26/20 19:18 Last Admin: 07/26/20 19:21 Dose: 2 mg Documented by: GRISEL Ondansetron HCl (Ondansetron 4 Mg/2 Ml Inj) 4 mg IV NOW ONE Stop: 07/26/20 19:18 Last Admin: 07/26/20 19:21 Dose: 4 mg Documented by: GRISEL Vital Signs Vital signs: Vital Signs - 8 hr 07/26/20 15:08 07/26/20 19:29 Temperature 98.7 F Pulse Rate 82 79 Respiratory Rate 15 20 Blood Pressure 154/105 H 152/101 H Pulse Oximetry 98 99 MDM - Abdominal Pain Lab Data Attestation: I reviewed the patient's lab results. Result diagrams: 07/26/20 15:20 07/26/20 15:20 Labs: Lab Results 07/26/20 07/26/20 07/26/20 Range/Units 15:20 15:20 15:20 WBC 7.4 (4.5-11.0) X10^3/uL RBC 5.16 (4.0-5.2) X10^6/uL Hgb 15.7 (12.0-16.0) g/dL Hct 46.5 H (36-46) % MCV 90.1 (80-100) fL MCH 30.4 (26-34) PG MCHC 33.8 (30-36) % RDW 13.4 (11.6-14.8) % Plt Count 347 (150-400) X10^3/uL Neut % (Auto) 58.3 (50-75) % Lymph % (Auto) 29.7 (25-40) % Stanley % (Auto) 10.3 (3-14) % Eos % (Auto) 0.9 L (2-4) % Baso % (Auto) 0.8 (0-2) % Neut # (Auto) 4300 (5733-0476) /uL Lymph # (Auto) 2200 (2491-0000) /uL Stanley # (Auto) 800 (0-900) /uL Eos # (Auto) 100 (0-450) /uL Baso # (Auto) 100 (0-100) /uL PT 10.6 (10.1-12.7) SECONDS INR 0.9 (0.9-1.3) APTT 33 D (26.4-36.2) SECONDS Sodium 140 (137-145) mmol/L Potassium 4.0 (3.4-5.1) mmol/L Chloride 106 (98-107) mmol/L Carbon Dioxide 23 (22-32) mmol/L BUN 10 (7-17) mg/dL Creatinine 0.64 (0.52-1.04) mg/dL Estimated GFR > 60.0 (>60) mL/min BUN/Creatinine Ratio 15.6 (6-22) Glucose 99 (70-100) mg/dL Calcium 9.9 (8.4-10.2) mg/dL Total Bilirubin 0.3 (0.2-1.3) mg/dL AST 26 (14-36) IU/L ALT 15 (<35) IU/L Alkaline Phosphatase 73 (38-126) U/L Total Protein 7.9 (6.3-8.2) g/dL Albumin 4.6 (3.5-5.0) g/dL Globulin 3.3 (1.7-4.1) g/dL Albumin/Globulin Ratio 1.4 (1.0-2.8) Lipase 52 (23-300) U/L Point of care testing: Point of Care Testing Test Results Negative Urine Dip Bedside Urine Glucose Negative Bedside Urine Bilirubin - Negative Bedside Urine Ketone +/- 5 Urine Specific [place] 1.025 Bedside Urine Occult Blood - Negative Bedside Urine pH 6.0 Bedside Urine Protein - Negative Bedside Urine Urobilinogen - Negative Bedside Urine Nitrite - Negative Bedside Urine Leukocytes - Negative Esterase Imaging Data CT scan - abdomen/pelvis: Radiologist's Impression: PROCEDURE: CT ABDOMEN PELVIS W CON INDICATIONS: rlq pain TECHNIQUE: After the administration of intravenous contrast, 5 mm thick sections acquired from the diaphragm to the symphysis. 5 mm coronal and sagittal reformats were acquired. For radiation dose reduction, the following was used: automated exposure control, adjustment of mA and/or kV according to patient size. COMPARISON: [facility], CT, ABDOMEN/PELVIS WITH CONTRAST, 04/25/2016, 17:27. FINDINGS: Image quality: Excellent. Lung bases: Lung bases are clear. Heart size is normal. Solid organs: Liver: The liver has no mass or intrahepatic biliary ductal dilatation. The portal vein and hepatic veins are patent. Biliary: The gallbladder has no gallstones, pericholecystic fluid, gallbladder wall thickening, or surrounding inflammatory change. Pancreas: The pancreas has no mass or ductal dilatation. There is no surrounding inflammation. Spleen: Normal size. There are no masses. Adrenals: No hypertrophy or nodules. Kidneys: No obstructive calculus or hydronephrosis. No solid mass. No cystic mass. Peritoneum and bowel: The distal esophagus and stomach are normal. The small bowel has a normal caliber and appearance. The terminal ileum is normal. The large bowel has a normal caliber and appearance. The appendix is normal. No free fluid or air. Nodes and vessels: No retroperitoneal or mesenteric adenopathy by size criteria. Aorta and inferior vena cava are normal in size. Miscellaneous: No abdominal wall mass or hernia. PELVIS: Genitourinary: The bladder has no wall thickening or mass. No bladder calcifications. The right ovary demonstrates multiple cysts and surrounding fluid, possibly a recently ruptured cyst. Torsion of the ovary is also a possibility. Miscellaneous: No inguinal hernias or adenopathy. Bones: No suspicious bony lesions. No vertebral body compression fractures. IMPRESSION: 1. Multiple cysts in the right ovary with adjacent fluid. Differential diagnosis includes a recently ruptured cyst versus torsion of the ovary. 2. Normal appendix. Dictated by: Jimy Villalba M.D. on 07/26/2020 at 20:42 Approved by: Jimy Villalba M.D. on 07/26/2020 at 20:53 US - NURSING PROJECT COORDINATOR: Radiologist's Impression: PROCEDURE: US PELVIC COMPLETE INDICATIONS: RIGHT PELVIC PAIN TECHNIQUE: Real-time scanning was performed of the pelvic organs, with image documentation. Additional endovaginal scanning was necessary due to incomplete visualization of the adnexal and endometrial structures by transabdominal scanning. COMPARISON: [facility], US PELVIC COMPLETE, 04/16/2018, 18:58. FINDINGS: Uterus: The uterus measures 8.1 x 4.3 x 5.5 cm. Endometrial thickness is 16.7 mm. Ovaries: Both ovaries have a normal size and appearance with normal vascularity. Both ovaries have multiple normal appearing follicles. Other: No pathologic free abdominal or pelvic fluid. The appendix is not seen. IMPRESSION: No acute ultrasound abnormality of the pelvis. Dictated by: Jimy Villalba M.D. on 07/26/2020 at 20:57 MDM Narrative Medical decision making narrative: Morphine has helped with her pain. She has right ovarian cysts not appendicitis. At this time I recommend she stop taking her antibiotics now are not indicated for ovarian cyst blood work and CT not show any indication to take antibiotics. Recommend she follow up as outpatient. Discharge Plan Departure Patient Disposition: Home Clinical Impression: Ovarian cyst Qualifiers: Laterality: right Qualified Code(s): N83.201 - Unspecified ovarian cyst, right side Instructions: Ovarian Cyst Activity Restrictions/Additional Instructions: *You have been diagnosed with right ovarian cyst *What to do: At this time her pain and related to an ovarian cyst *Continue to take medications as directed -stop taking amoxicillin it is not indicated. Ibuprofen 600 mg every 6-8 hours if needed for [id number] [place] 1 tablet every 6 hours only if needed for severe pain--> SENT TO [facility] *Follow up with your primary care provider in 2-3 days *Return to ER if you should have increasing pain nausea vomiting or any new, worsening or concerning symptoms CONTROLLED SUBSTANCE DISCHARGE (Narcotoic/benzodiazepine/Flexeril/Phenergan) 1. You have been prescribed narcotic medications, it does have acetaminophen/Tylenol/paracetamol in it, DO NOT TAKE MORE THAN 4,00mg in 24 hours of Tylenol. TRAMADOL DOES NOT CONTAIN TYLENOL 2. Please understand that we cannot provide further refills of narcotics, benzodiazepines or controlled substances through the ED and her pain management will need to be through your provider. 3. While on these medications you cannot drive or operate heavy machinery. 4. You cannot sign legal documents or perform any duties such as this. 5. As long as you're taking opiate pain medications he should also be taking a stool softener such as Colace, Dulcolax, MiraLAX or prune juice, to help avoid constipation. Prescriptions: New hydrocodone-acetaminophen 5-325 mg tablet 1 tab PO Q6H PRN (Reason: pain) Qty: 10 RF: 0 No Action amoxicillin-pot clavulanate 875-125 mg tablet 1 tab PO BID Qty: 20 RF: 0 Referrals: Sancho Gracia MD [Primary Care Provider] -
[2020-07-26] MEDS: MORPHINE 2 MG/ML INJ IV (19:21)
[2020-07-26] MEDS: ONDANSETRON 4 MG/2 ML INJ IV (19:21)
[2020-07-26] MEDS: HYDROCODONE/ACET 5/325 PREPACK 1 BOTTLE MISC (21:50)
== END 2020-07-26 21:52 | disposition home or self-care (01) ==
PROVIDERS: Emergency Medicine; Emergency Provider Emergency Medicine; Family Provider Family Medicine; PCP Family Medicine
DX: N83.201 Unspecified ovarian cyst, right side (principal); E11.9 Type 2 diabetes mellitus without complications; I10 Essential (primary) hypertension
CPT/HCPCS: 36415; 74177; 76830; 76856; 80053; 81003; 81025; 83690; 85025; 85610; 85730; 96374; 96375; 99284; J2270; J2405

== ENCOUNTER → 2021-07-21 08:30 | Outpatient (CLI) | payer OTHER, SELFPAY ==
[2021-07-21 18:37] LABS: Appearance Urine UA CLEAR; Bilirubin Urine UA NEGATIVE (NEGATIVE); Color Urine UA YELLOW; Glucose Urine UA NEGATIVE (Negative); Ketones Urine UA NEGATIVE (NEGATIVE); Leukocyte Esterase Urine UA NEGATIVE (NEGATIVE); Nitrite Urine UA NEGATIVE (Negative); Occult Blood Urine UA NEGATIVE (Negative); Protein Urine UA NEGATIVE (Negative); Specific Gravity Urine UA 1.015 (1.000-1.035); Urobilinogen Urine UA 0.2 E.U./dL (0.2)
[2021-07-21 18:39] LABS: pH Urine UA 7.5 (4.5-8.0)
[2021-07-21 18:55] LABS: Bacteria Urine None Seen; Culture Indicated Urine Cult Not Indicated; RBC Urine None Seen (0-5/HPF); Squamous Epithelial Cell Urine 1-5 /HPF (0-5/HPF); WBC Urine 0-1/HPF (0-5/HPF)
== END ==
PROVIDERS: Family Provider Family Medicine; PCP Family Medicine; Visit Provider Physician Assistant Medical
DX: M54.9 Dorsalgia, unspecified (principal)
CPT/HCPCS: 81001

== ENCOUNTER → 2022-02-05 09:32 | Outpatient (CLI) | payer OTHER, MEDICAID, SELFPAY ==
[2022-02-05 20:18] LABS: Alanine Aminotransferase 16 IU/L (<35); Albumin 4.4 g/dL (3.5-5.0); Albumin Globulin Ratio 1.3 (1.0-2.8); Alkaline Phosphatase 81 U/L (38-126); Aspartate Aminotransferase 33 IU/L (14-36); Bilirubin Total 0.3 mg/dL (0.2-1.3); Blood Urea Nitrogen 7 mg/dL (7-17); Calcium 8.9 mg/dL (8.4-10.2); Carbon Dioxide 23 mmol/L (22-32); Chloride 102 mmol/L (98-107); Estimated Glomerular Filt Rate > 60 mL/min (>60); Globulin 3.4 g/dL (1.7-4.1); Glucose 118 mg/dL (70-100); HEMOLYSIS < 15 (0-50); Potassium 4.1 mmol/L (3.4-5.1); Sodium 134 mmol/L (137-145); Total Protein 7.8 g/dL (6.3-8.2)
[2022-02-05 20:26] LABS: Free T3, Triiodothyronine Free 4.75 pg/mL (2.77-5.27)
== END ==
PROVIDERS: Family Provider Family Medicine; PCP Physician Assistant Medical; Visit Provider Physician Assistant Medical
DX: F32.9 Major depressive disorder, single episode, unspecified (principal); F41.0 Panic disorder [episodic paroxysmal anxiety]; F41.9 Anxiety disorder, unspecified
CPT/HCPCS: 80053; 84443; 84481